=== PATIENT | male | born 1955 | race Caucasian/White ===

== ENCOUNTER 2021-04-04 07:04 | Outpatient (CLI) | payer MEDICARE, OTHER ==
--- NOTE | 2021-04-04 16:29 | Ultrasound Report ---
PROCEDURE: Aorta Screening INDICATIONS: SCREENING FOR AAA TECHNIQUE: Real time scanning was performed of the aorta and iliac arteries, with image documentatio n. COMPARISON: FINDINGS: Aorta: Proximal aortic diameter measures 2.4 x 2.3 cm. Mid-aorta measures 2.0 x 2.2 cm. Distal aor tic diameter is 1.7 x 1.8 cm. Mild to moderate scattered plaque. Iliac arteries: Right common iliac artery measures 1.2 x 1.2 cm. Left common iliac artery measures 1.2 x 1.2 cm. IMPRESSION: No aneurysmal dilation. Scattered plaque consistent with atherosclerotic disease is noted. Reviewed by: Dahlia Ramon MD on 04/04/2021 4:27 PM PDT Approved by: Dahlia Ramon MD on 04/04/2021 4:27 PM PDT Station ID: [id number]
== END 2021-04-04 07:05 | disposition home or self-care (01) ==
LOC: DI 07:04
PROVIDERS: ATTEND Internal Medicine
DX: Z13.6 Encounter for screening for cardiovascular disorders (principal); I70.0 Atherosclerosis of aorta

== ENCOUNTER 2024-03-20 07:45 | Day surgery (SDC) | payer MEDICARE, OTHER ==
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
[2024-03-20] MEDS: HYDROmorphone 1 MG/ML CARPUJECT IVP STA ×2 (08:11→13:34)
[2024-03-20 08:12] LABS: BASOPHILS % (AUTO) 0.2 %; HCT - HEMATOCRIT 43.1 % (42.0-52.0); HGB - HEMOGLOBIN 14.8 g/dL (14.0-18.0); LYMPHOCYTES # (AUTO) 1.2 10^3/uL (1.5-3.5); LYMPHOCYTES % (AUTO) 6.4 %; MEAN CORPUSCULAR HEMOGLOBIN 32.3 pg (27.0-31.0); MEAN CORPUSCULAR HGB CONC 34.3 g/dL (32.0-36.0); MEAN CORPUSCULAR VOLUME 94.1 fL (80.0-94.0); MEAN PLATELET VOLUME 9.8 fL (7.4-11.4); MONOCYTES # (AUTO) 2.2 10^3/uL (0.0-1.0); MONOCYTES % (AUTO) 11.8 %; NEUTROPHILS # (AUTO) 15.3 10^3/uL (1.5-6.6); NEUTROPHILS % (AUTO) 80.7 %; PLT - PLATELET COUNT 175 10^3/uL (130-450); RED BLOOD COUNT 4.58 10^6/uL (4.70-6.10); RED CELL DISTRIBUTION WIDTH 13.1 % (12.0-15.0)
[2024-03-20 08:17] LABS: SLIDE REVIEW? Indicated
[2024-03-20 08:28] LABS: ALBUMIN/GLOBULIN RATIO 1.3 (1.0-2.2); BILIRUBIN,TOTAL 2.1 mg/dL (0.2-1.0); CALCIUM 9.1 mg/dL (8.5-10.3); CREATININE 0.8 mg/dL (0.6-1.3); POTASSIUM 3.5 mmol/L (3.5-4.5)
[2024-03-20 08:43] LABS: RBC MORPHOLOGY (MULTIPLE) 1+ ANISOCYTOSIS (NORMAL)
--- NOTE | 2024-03-20 09:33 | Ultrasound Report ---
PROCEDURE: Abdomen Limited INDICATIONS: ruq pain TECHNIQUE: Real-time focused scanning was performed of the abdomen, with image documentation. COMPARISONS: None. FINDINGS: Liver: Liver is normal in size and homogeneous in echotexture. Liver parenchyma is diffusely echoge trevor. Main portal vein is patent with hepatopedal flow. Gallbladder: Gallstones and sludge. Wall thickness is 2 mm. Trace pericholecystic fluid. Positive son ographic De Anda's. Biliary ducts: Intrahepatic bile ducts are non-dilated. Extrahepatic bile duct caliber measures 8 m m. Normal is 6-7 mm or less in diameter, or 10 mm or less post-cholecystectomy. No sonographic evid ence of choledocholithiasis. Pancreas: Not well seen secondary to bowel gas. Right kidney: Normal in size and echotexture. Right kidney measures 8.9 cm long. No hydronephrosis o r nephrolithiasis. No solid masses. No complex renal cystic lesions which require follow-up. IVC: Intrahepatic inferior vena cava is patent. Miscellaneous: No free abdominal fluid. IMPRESSION: 1.Gallstones and sludge with trace pericholecystic fluid is suggestive of acute cholecystitis in the setting of right upper quadrant pain/appropriate clinical context. Correlate with physical exam and L FTs. 2.Common bile duct is dilated at the pancreatic head measuring 8 mm. No sonographic evidence of zak docholithiasis. 3.Liver parenchyma is diffusely echogenic which may be seen in the setting of parenchymal disease suc h as steatosis. Preliminary results were given to Dr. Harris by the artificial stone applicator at 9:15 AM. Reviewed by: Abdirahman Starks MD on 03/20/2024 8:31 AM BRENDA Approved by: Abdirahman Starks MD on 03/20/2024 8:31 AM BRENDA Station ID: [id number]
[2024-03-20] MEDS: PIPERACILLIN/TAZOBACTAM 3.375 GM in SODIUM CHLORIDE 0.9% MINIBAG 100 ML IV STA (10:04)
[2024-03-20] MEDS ORDERED: GADOTERATE MEGLUMINE 7.5 MMOL/15 ML VIAL ONE (10:46)
[2024-03-20] MEDS: LACTATED RINGERS 1,000 ML IV STA (10:49)
[2024-03-20] MEDS: GADOTERATE MEGLUMINE 7.5 MMOL/15 ML VIAL IVP ONE (11:37)
--- NOTE | 2024-03-20 13:16 | MRI Report ---
PROCEDURE: MRCP W/WO INDICATIONS: Cholecystitis with elevated bilirubin cholecystiti CONTRAST: CLARISCAN 14.8 ML TECHNIQUE: Coronal ultra fast SE through the abdomen, axial 2-D spoiled GE in- and [id number], and breath-hold T2 FSE with fat saturation through the biliary system and pancreas. Oblique coronal and axial thin- slice ultra fast SE, radial thick-slab ultra fast SE centered on the extrahepatic bile ducts. COMPARISON: Abdominal ultrasound on March 20, 2024 FINDINGS: Image quality: Excellent. Gallbladder: Distended gallbladder with gallstones, wall thickening and pericholecystic fluid. Biliary tree: No intrahepatic or extrahepatic dilation. No filling defects within the common bile dean t. Pancreas: No pancreatic ductal dilation. Lung bases and heart: Unremarkable. Liver: No solid mass. Trace perihepatic ascites. Spleen: No splenomegaly. Splenule. Adrenals: No adrenal nodule. Kidneys and ureters: No hydronephrosis. No renal cystic lesion which requires follow up. No solid mas s. Multiple left-sided parapelvic cysts. Left upper pole exophytic cyst simple cyst. Bowel and peritoneum: No bowel distension. No pathologic free fluid. Lymph nodes: No central or retroperitoneal adenopathy. Vessels: No infrarenal aortic aneurysm. Bones: No aggressive osseous abnormality. Multilevel degenerative changes of the spine. Other: No significant ventral hernia. IMPRESSION: 1.Cholelithiasis with acute cholecystitis. 2.No intrahepatic or extrahepatic dilation. No filling defects within the common bile duct. 3.Trace perihepatic ascites. Reviewed by: Abdirahman Starks MD on 03/20/2024 12:14 PM BRENDA Approved by: Abdirahman Starks MD on 03/20/2024 12:14 PM AKDT Station ID: [id number]
--- NOTE | 2024-03-20 13:30 | HISTORY & PHYSICAL EXAMINATION ---
HPI - Admitted From Admitted from: ED - History Obtained From History obtained from: Patient Exam limitations: No limitations - History of Present Illness HPI Comment/Other: 68yoM with 2 days of epigastric pain associated with nausea but no emesis. Went to walk in clinic yesterday, trialed omeprazole and sucralfate, but this did not help his pain, thus today presented to the ED. Had a normal BM yesterday. Denies fevers at home. Takes tylenol (no NSAIDS) somewhat regularly and this did not help his pain. Endorses rare/occasional mild abdominal pain episodes throughout life that are fairly underwhelming to him. PMH/PSH - Past Medical History : positive: Benign prostate hypertrophy Derm: positive: Other (skin cancer) MRSA Hx?: No - Past Surgical History Ortho: positive: Arthroscopic surgery (left knee) Neuro: positive: Craniotomy Derm: positive: Skin cancer surgery Social & Family Hx - Social History Does the pt smoke?: No Smoking Status: Former smoker Does the pt drink ETOH?: No Does the pt have substance abuse?: No Meds/Allgy - Home Medications Home Medications: Ambulatory Orders Medication Instructions Recorded Confirmed Tamsulosin [Flomax] 0.4 mg PO DAILY 03/20/24 03/20/24 - Allergies Allergies/Adverse Reactions: Allergies Allergy/AdvReac Type Severity Reaction Status Date / Time No Known Drug Allergies Allergy Verified 03/20/24 07:50 Review of Systems - Gastrointestinal Gastrointestinal: reports: Abdominal pain, Nausea. denies: Vomiting Exam - Vital Signs Reviewed Vital Signs: Yes Vital Signs: Vital Signs x48h Temp Pulse Resp BP Pulse Ox 03/20/24 10:53 87 18 113/71 95 03/20/24 07:50 36.5 C 111 H 18 121/69 97 - Physical Exam General Appearance: positive: No acute distress, Alert Eyes Bilateral: positive: Normal inspection, PERRL ENT: positive: ENT inspection nml, Pharynx nml, No signs of dehydration Neck: positive: Nml inspection, Thyroid nml, No JVD, Trachea midline Respiratory: positive: Chest non-tender, No respiratory distress, Breath sounds nml Cardiovascular: positive: Regular rate & rhythm, No murmur, No gallop Peripheral Pulses: positive: 2+ Abdomen: positive: No distention, Tenderness (positive murpheys sign). negative: Guarding Back: positive: Nml inspection Skin: positive: Color nml, No rash, Warm, Dry Extremities: positive: Non-tender, Full ROM, Nml appearance Neurologic/Psychiatric: positive: Oriented x3, Mood/affect nml Results - Lab Results Lab results reviewed: Yes Fish Bones: 03/20/24 08:07 03/20/24 08:07 Other Lab Results: Lab Results x24hrs 03/20/24 03/20/24 Range/Units 08:07 08:07 WBC 19.0 H (4.8-10.8) x10^3/uL RBC 4.58 L (4.70-6.10) 10^6/uL Hgb 14.8 (14.0-18.0) g/dL Hct 43.1 (42.0-52.0) % MCV 94.1 H (80.0-94.0) fL MCH 32.3 H (27.0-31.0) pg MCHC 34.3 (32.0-36.0) g/dL RDW 13.1 (12.0-15.0) % Plt Count 175 (130-450) 10^3/uL MPV 9.8 (7.4-11.4) fL Neut # (Auto) 15.3 H (1.5-6.6) 10^3/uL Lymph # (Auto) 1.2 L (1.5-3.5) 10^3/uL [place] # (Auto) 2.2 H (0.0-1.0) 10^3/uL Eos # (Auto) 0.0 (0.0-0.7) 10^3/uL Baso # (Auto) 0.0 (0.0-0.1) 10^3/uL Absolute Nucleated RBC 0.00 x10^3/uL Nucleated RBC % 0.0 /100WBC Manual Slide Review Indicated RBC Morph Micro Appear 1+ ANISOCYTOSIS (NORMAL) Sodium 134 L (135-145) mmol/L Potassium 3.5 (3.5-4.5) mmol/L Chloride 102 (101-111) mmol/L Carbon Dioxide 24 (21-32) mmol/L Anion Gap 8.0 (6-13) BUN 13 (6-20) mg/dL Creatinine 0.8 (0.6-1.3) mg/dL Estimated GFR (MDRD) 96 (>89) Glucose 175 H (74-104) mg/dL Calcium 9.1 (8.5-10.3) mg/dL Total Bilirubin 2.1 H (0.2-1.0) mg/dL AST 19 (10-42) IU/L ALT 22 (10-60) IU/L Alkaline Phosphatase 67 (42-121) IU/L Total Protein 7.0 (6.4-8.9) g/dL Albumin 4.0 (3.2-5.5) g/dL Globulin 3.0 (2.1-4.2) g/dL Albumin/Globulin Ratio 1.3 (1.0-2.2) Lipase 18 (11-82) U/L - Diagnostic Imaging Results Diagnostic Imaging Results: positive: Final report reviewed Diagnostic Imaging Results Comments: RUQUS: stones, 2mm GBW, trace PCF, + sonographic konrad sign, CBD 8mm MRCP: negative for choledocholithiasis Impression/Plan - Problem List Problem List: 68yoM with minimal medical problems (BPH, remote trauma craniectomy, knee arthroscopy) with 48hrs pain c/w acute cholecystitis. Initially tachycardic to 111 but improved to 80s with IVF and zosyn in ED, otherwise normotensive and AF. + murpheys sign on exam, RUQUS c/w acute cholecystitis, and WBC 19. Because Tb 2.1 (rest of LFTs normal) and CBD 8 on RUQUS, I obtained an MRCP to rule out choledocholithiasis - which is negative. Discussed diagnosis with patient and recommended laparoscopic cholecystectomy. Discussed risks to include pain, bleeding, infection, bile leak, damage to surrounding structures/CBD. Patient and understand and would like to proceed. - to OR for laparoscopic cholecystectomy - zosyn given in ED Mary Villavicencio DO, FACS General Surgeon, [place]
--- NOTE | 2024-03-20 14:07 | ANESTHESIA ---
Pre-Anesthesia VS, & Labs - Diagnosis acute cholecytitis - Procedure laparoscopic cholecytectomy Vital Signs: Temp Pulse Resp BP Pulse Ox O2 Flow Rate 36.5 C 100 22 103/77 96 03/20/24 07:50 03/20/24 13:45 03/20/24 13:45 03/20/24 13:45 03/20/24 13:45 Height: 5 ft 8 in Weight (kg): 73.936 kg Body Mass Index: 24.7 BMI Classification: Normal - NPO >8 hours - Lab Results Current Lab Results: Laboratory Tests 03/20/24 08:07: Sodium 134 L, Potassium 3.5, Chloride 102, Carbon Dioxide 24, Anion Gap 8.0, BUN 13, Creatinine 0.8, Estimated GFR (MDRD) 96, Glucose 175 H, Calcium 9.1, Total Bilirubin 2.1 H, AST 19, ALT 22, Alkaline Phosphatase 67, Total Protein 7.0, Albumin 4.0, Globulin 3.0, Albumin/Globulin Ratio 1.3, Lipase 18 03/20/24 08:07: WBC 19.0 H, RBC 4.58 L, Hgb 14.8, Hct 43.1, MCV 94.1 H, MCH 32.3 H, MCHC 34.3, RDW 13.1, Plt Count 175, MPV 9.8, Neut # (Auto) 15.3 H, Lymph # (Auto) 1.2 L, [place] # (Auto) 2.2 H, Eos # (Auto) 0.0, Baso # (Auto) 0.0, Absolute Nucleated RBC 0.00, Nucleated RBC % 0.0, Manual Slide Review Indicated, RBC Morph Micro Appear 1+ ANISOCYTOSIS Fish Bones: 03/20/24 08:07 03/20/24 08:07 Home Medications and Allergies Home Medications: Ambulatory Orders Tamsulosin [Flomax] 0.4 mg PO DAILY 03/20/24 Active Medications Lactated Ringer's (Lr) 1,000 mls @ 150 mls/hr IV .Q6H40M STA Stop: 03/20/24 16:08 Last Infusion: 03/20/24 12:30 Dose: 150 mls/hr Tamsulosin [Flomax] 0.4 mg PO DAILY 03/20/24 Allergies/Adverse Reactions: Allergies Allergy/AdvReac Type Severity Reaction Status Date / Time No Known Drug Allergies Allergy Verified 03/20/24 07:50 Anes History & Medical History - Anesthetic History Anesthesia Complications: reports: No previous complications Family history of Anesthesia Complications: Denies Family history of Malignant Hyperthermia: Denies - Medical History Cardiovascular: reports: Hypertension Gastrointestinal: reports: Other (abd pain x 4 days) Urinary: reports: Benign prostate hypertrophy Skin: reports: Other (skin cancer) Smoking Status: Former smoker History of Cancer?: No - Surgical History Neurologic: reports: Craniotomy Orthopedic: reports: Arthroscopic surgery (left knee) Dermatologic: reports: Skin cancer surgery Exam General: Alert, Oriented x3, Cooperative Dental: Dentures full Upper Mouth Openin Fingerbreadth Neck Mobility: Normal Mallampati classification: III Thyromental Distance: 4-6 cm Respiratory: Lungs clear Cardiovascular: Regular rate Neurological: Normal speech Mental/Cognitive Status: Alert/Oriented X3 Cognitive Status: Within normal limits Plan Anesthesia Type: General Consent for Procedure(s) Verified and Reviewed: Yes Code Status: Attempt Resuscitation ASA classification: 2-Mild systemic disease Is this case an emergency?: Yes
[2024-03-20] MEDS ORDERED: MIDAZOLAM 2 MG/2 ML VIAL ONE (17:36)
[2024-03-20] MEDS ORDERED: PROPOFOL 200 MG/20 ML VIAL IVP ONE (17:37)
[2024-03-20] MEDS ORDERED: LIDOCAINE-PF 2% 10 ML AMP SUBQ ONE (17:37)
[2024-03-20] MEDS ORDERED: ROCURONIUM 50 MG/5 ML VIAL ONE (17:37)
[2024-03-20] MEDS ORDERED: fentaNYL 100 MCG/2 ML VIAL ONE (17:37)
[2024-03-20] MEDS ORDERED: NALOXONE 0.4 MG/ML VIAL IVP PRN (17:55)
[2024-03-20] MEDS ORDERED: ONDANSETRON 4 MG/2 ML VIAL IVP PRN ×2 (17:55→21:10)
[2024-03-20] MEDS ORDERED: ATROPINE ABBOJECT 1 MG/10 ML SYRINGE IVP PRN (17:55)
[2024-03-20] MEDS ORDERED: METOCLOPRAMIDE 10 MG/2 ML VIAL IVP PRN (17:55)
[2024-03-20] MEDS ORDERED: HYDROmorphone 0.5 MG/0.5 ML SYRINGE IVP PRN ×2 (17:55→21:10)
[2024-03-20] MEDS ORDERED: fentaNYL 100 MCG/2 ML VIAL IVP PRN (17:55)
[2024-03-20] MEDS ORDERED: MORPHINE 2 MG/ML CARPUJECT IVP PRN (17:55)
[2024-03-20] MEDS ORDERED: ePHEDrine 50 MG/ML VIAL IVP PRN (17:55)
[2024-03-20] MEDS ORDERED: LACTATED RINGERS 1,000 ML IV SCH (18:00)
[2024-03-20] MEDS ORDERED: BUPIVACAINE 0.5% PF 10 ML VIAL ONE (18:07)
[2024-03-20] MEDS ORDERED: LIDOCAINE 1%-EPI 1:100000 20 ML MDV ONE (18:07)
[2024-03-20] MEDS ORDERED: BUPIVACAINE 0.25% PF 10 ML VIAL ONE (18:09)
[2024-03-20] MEDS ORDERED: ceFAZolin 1 GM VIAL ONE (18:36)
[2024-03-20] MEDS ORDERED: DEXAMETHASONE 4 MG/ML VIAL ONE (18:44)
[2024-03-20] MEDS: BUPIVACAINE 0.25% PF 10 ML VIAL SUBQ ONE ×2 (18:58)
[2024-03-20] MEDS: LIDOCAINE 1%-EPI 1:100000 20 ML MDV SUBQ ONE ×2 (18:58)
[2024-03-20] MEDS ORDERED: KETOROLAC 30 MG/ML VIAL ONE (19:07)
[2024-03-20] MEDS ORDERED: PHENYLEPHRINE HCL 0.5 MG/5 ML AMPULE ONE (19:32)
[2024-03-20] MEDS ORDERED: SUGAMMADEX 200 MG/2 ML VIAL IVP ONE (19:43)
[2024-03-20] MEDS: LACTATED RINGERS 1,000 ML IV ONE (20:41)
--- NOTE | 2024-03-20 21:02 | OPERATIVE REPORT ---
Operative Report - General Procedure Date: 03/20/24 Planned Procedure: laparoscopic cholecystectomy Pre-Op Diagnosis: acute cholecystitis Procedure Performed: laparoscopic cholecystectomy Post Op Diagnosis: acute gangrenous calculus cholecystitis - Procedure Note Primary Surgeon: Mary Villavicencio DO Secondary Surgeon: Reyna WU Anesthesia Provider: Girish Jones CRNA Anesthesia Technique: General ET tube Pathology: gallbladder IV Fluids (mL): 1,400 Estimated Blood Loss (mL): 30 Indications: acute cholecystitis on ED workup Findings: tense gallbladder, 100cc black bile aspirated, patchy wall necrosis, large cystic duct endolooped (0 PDS) Complications: none - Other Other Information/Narrative: Patient was brought to the operating room under universal protocol. He was placed supine on the operating room table. General anesthesia was induced by the AMINA. He was positioned with the left arm tucked. No Cook was placed. A final timeout was performed with all members of the team in agreement. The abdomen was prepped and draped in standard sterile fashion. The abdomen was entered via Camacho technique at the supraumbilical position. Local anesthetic was injected. the skin was incised sharply. the subcutaneous tissues were dissected bluntly down to the level of the fascia. a Erica clamp was used to elevate the umbilicus and the supraumbilical fascia was incised vertically sharply. The peritoneal cavity was entered bluntly with a Virginie forcep a blunt trocar was placed. The abdomen was insufflated to 15 mmHg with CO2 gas which the patient tolerated well. The laparoscope was introduced and under direct visualization 3 additional 5 mm trocars were placed in the following positions: Subxiphoid right upper quadrant at the subcostal margin along the midclavicular line and far lateral right upper quadrant at the subcostal margin. Patient was positioned with the head up in the right side elevated and graspers were introduced into the abdomen. The gallbladder was seen to be tensely distended and was aspirated with a laparoscopic needle revealing 100 cc of black bile. After this the fundus was grasped and elevated cephalad over the liver edge. The infundibulum was grasped and retracted laterally. There were patchy areas of necrosis throughout the gallbladder wall. Hook electrocautery was used to incise the peritoneum over the medial and lateral edge of the gallbladder. 2 structures were seen entering the lower third of the gallbladder with the liver edge seen between these 2 structures representing the critical view of safety. The cystic artery was triply clipped and divided sharply between the clips. The cystic duct was large and decision was made to use an endoloop. The duct was transected, a single lumen was visualized at the level of transection, and several 5mm soft yellow stones were milked from the remaining stump of the cystic duct and suctioned from the abdomen. An endoloop of 0 PDS was secured on the cystic duct stump. The gallbladder was taken off of the liver bed using hook electrocautery. Bleeding on the hepatic fossa was controlled with hook electrocautery. The gallbladder was placed into an Endo Catch retrieval bag and removed through the umbilical port. Hemostasis was again ensured and clips and endoloop were noted to be within proper position. The abdomen was irrigated and suctioned until irrigant returnd clear. The trocars were removed. the patient was positioned flat. The fascia at the umbilical incision was closed with an 0 Vicryl [id number] suture and the umbilical wound was irrigated with clean normal saline. The remainder of the local anesthetic was injected at all incision sites. The skin at all incisions was closed with a subcuticular 4-0 Monocryl suture followed by dressing application. The patient was then awoken from general anesthesia having tolerated the procedure well remained hemodynamically normal throughout the entirety of the case. He was transferred to the PACU in good condition. All sponge and needle counts were correct.
[2024-03-20] MEDS ORDERED: oxyCODONE 5 MG TABLET PO PRN (21:10)
--- NOTE | 2024-03-20 21:33 | ANESTHESIA POST OP EVALUATION ---
Anesthesia Post Eval - Post Anesthesia Eval Vitals: Last Vital Signs Temp 36.7 C 03/20/24 21:00 Pulse 112 H 03/20/24 21:00 Resp 10 L 03/20/24 21:00 BP 125/85 H 03/20/24 21:00 Pulse Ox 96 03/20/24 21:00 O2 Flow Rate CV Function Including HR & BP: Stable Pain Control: Satisfactory Nausea & Vomiting: Negative Mental Status: Baseline Respiratory Status: Airway Patent Hydration Status: Satisfactory Anesthesia Complications: None
[2024-03-20] MEDS: TAMSULOSIN 0.4 MG CAPSULE PO SCH (21:45)
[2024-03-20] MEDS: LACTATED RINGERS 1,000 ML IV SCH (21:46)
[2024-03-21] MEDS: ACETAMINOPHEN 325 MG TABLET PO SCH (00:59)
--- NOTE | 2024-03-21 07:45 | PHARMACY PROGRESS NOTE ---
- Best Possible Medication History Admit Date and Time: Processed by: Nursing As the person ultimately responsible for medication therapy, providers are able to order a medication from an existing home medication list in [facility] via the "Reconcile Routine" prior to Confirmation of that medication by computer support analyst. Such practice is discouraged except when the physician, in their clinical judgment, deems that a medical need exists for a medication without regard to previous use.
[2024-03-21 10:29] LABS: ALBUMIN 3.1 g/dL (3.2-5.5); ALBUMIN/GLOBULIN RATIO 1.1 (1.0-2.2); BILIRUBIN,TOTAL 1.2 mg/dL (0.2-1.0); CALCIUM 8.5 mg/dL (8.5-10.3); CREATININE 0.8 mg/dL (0.6-1.3); POTASSIUM 3.7 mmol/L (3.5-4.5); TOTAL PROTEIN 5.8 g/dL (6.4-8.9)
[2024-03-21 11:41] VITALS: BP 102/57; O2SAT 95
== END 2024-03-21 11:45 | disposition home or self-care (01) ==
LOC: ED 07:45 → SDS 13:00 → MS2 21:13 → SDS 03-21 11:45
PROVIDERS: ATTEND Surgery
PROC: 0FT44ZZ Resection of Gallbladder, Percutaneous Endoscopic Approach (ICD-10-PCS; principal; 2024-03-20 18:00)
DX: K80.00 Calculus of gallbladder with acute cholecystitis without obstruction (principal); K82.A1 Gangrene of gallbladder in cholecystitis; N40.0 Benign prostatic hyperplasia without lower urinary tract symptoms; I10 Essential (primary) hypertension; Z87.891 Personal history of nicotine dependence; R00.0 Tachycardia, unspecified
CPT/HCPCS: 36415; 47562; 74183; 76705; 80053; 83690; 85025; 93005; 96365; 96375; 96376; 99285; A9270; J1170; J2372; J7120